=== PATIENT | female | born 1975 | race African-American/Black ===

== ENCOUNTER 2018-01-21 16:18 | Inpatient (IN) | payer OTHER ==
[2018-01-21] MEDS ORDERED: PENDING SANTYL ORDER FOR WOUND CARE XX (17:00)
[2018-01-21] MEDS: OXYCODONE/ACETAMINOPHEN (5/325) TAB PO ×2 (18:35→23:08)
[2018-01-21] MEDS ORDERED: BISACODYL 10 MG SUPP PR (19:00)
[2018-01-21] MEDS ORDERED: ACETAMINOPHEN 325 MG TAB PO (19:00)
[2018-01-21] MEDS ORDERED: MAGNESIUM HYDROXIDE 30ML CUP PO (19:00)
[2018-01-21] MEDS: DOCUSATE SODIUM 100 MG CAP PO (21:00)
[2018-01-21] MEDS: SENNA TAB PO (21:00)
[2018-01-21] MEDS: ASPIRIN (EC) 81 MG TAB PO (21:42)
[2018-01-21] MEDS: morphine (ER) 15 MG TAB PO (21:42)
[2018-01-21] MEDS: CYCLOBENZAPRINE 10 MG TAB PO (21:42)
[2018-01-21] MEDS: ENOXAPARIN 100 MG/ML SYG SC (22:06)
[2018-01-22] MEDS: morphine (ER) 15 MG TAB PO (06:14)
[2018-01-22 06:47] LABS: ADD MAN DIFF? NO
[2018-01-22 06:50] LABS: EOSINOPHILS # 0.1 10^3/ul (0.0-0.5); EOSINOPHILS % 3.9 % (0.0-7.0); HEMATOCRIT 28.7 % (37.0-47.0); HEMOGLOBIN 8.8 g/dl (12.0-16.0); LYMPHOCYTES # 1.2 10^3/ul (0.8-2.9); LYMPHOCYTES % 40.1 % (15.0-51.0); MEAN CORPUSCULAR HEMOGLOBIN 29.1 pg (29.0-33.0); MEAN CORPUSCULAR HGB CONC 30.7 g/dl (32.0-37.0); MEAN PLATELET VOLUME 9.3 fl (7.4-10.4); MONOCYTE # 0.4 10^3/ul (0.3-0.9); MONOCYTES % 12.9 % (0.0-11.0); NEUTROPHIL # 1.3 10^3/ul (1.6-7.5); NEUTROPHILS % 41.8 % (39.0-77.0); NUCLEATED RED BLOOD CELLS% 0.6 /100WBC (0.0-0.0); PLATELET COUNT 293 10^3/UL (140-415); RED BLOOD COUNT 3.02 10^6/ul (4.20-5.40); RED CELL DISTRIBUTION WIDTH 15.9 % (11.5-14.5)
[2018-01-22 06:50] LABS: WHITE BLOOD COUNT 3.1 10^3/ul (4.8-10.8)
[2018-01-22 07:01] LABS: ADD UMIC NO; UR ASCORBIC ACID NEGATIVE (NEGATIVE); UR BILIRUBIN (Dip) NEGATIVE (NEGATIVE); UR BLOOD (Dip) NEGATIVE (NEGATIVE); UR CLARITY CLEAR (CLEAR); UR COLOR YELLOW (YELLOW); UR GLUCOSE (Dip) NEGATIVE (NEGATIVE); UR KETONES (Dip) NEGATIVE (NEGATIVE); UR LEUKOCYTE ESTERASE (Dip) NEGATIVE Leu/ul (NEGATIVE); UR NITRITE (Dip) NEGATIVE (NEGATIVE); UR SPECIFIC GRAVITY (Dip) 1.008 (1.003-1.030); UR TOTAL PROTEIN (Dip) NEGATIVE (NEGATIVE); UR UROBILINOGEN (Dip) NEGATIVE (NEGATIVE)
[2018-01-22 07:33] LABS: ALANINE AMINOTRANSFERASE 32 IU/L (13-69); ALBUMIN 3.2 g/dl (3.3-4.9); ALBUMIN/GLOBULIN RATIO 0.94; ALKALINE PHOSPHATASE 114 IU/L (42-121); ANION GAP 9 (8-16); ASPARTATE AMINO TRANSFERASE 31 IU/L (15-46); BILIRUBIN,INDIRECT 0.7 mg/dl (0-1.1); BILIRUBIN,TOTAL 0.7 mg/dl (0.2-1.3); BLOOD UREA NITROGEN 6 mg/dl (7-20); CALCIUM 8.4 mg/dl (8.4-10.2); CARBON DIOXIDE 29 mmol/L (21-31); CHLORIDE 102 mmol/L (97-110); CREATININE 0.86 mg/dl (0.44-1.00); GLUCOSE 122 mg/dl (70-220); POTASSIUM 4.2 mmol/L (3.5-5.1); SODIUM 136 mmol/L (135-144); TOTAL PROTEIN 6.6 g/dl (6.1-8.1)
[2018-01-22] MEDS: OXYCODONE/ACETAMINOPHEN (5/325) TAB PO (08:13)
[2018-01-22] MEDS: DOCUSATE SODIUM 100 MG CAP PO ×2 (08:14→20:51)
[2018-01-22] MEDS: ASPIRIN (EC) 81 MG TAB PO ×2 (08:14→20:50)
[2018-01-22] MEDS: CYCLOBENZAPRINE 10 MG TAB PO (08:14)
[2018-01-22] MEDS: HYDROmorphONE 1 MG/ML SYG IV ×7 (09:25→21:37)
[2018-01-22] MEDS: NEOMYC/POLYMYX/BACIT 30 GM OINT TOP ×2 (13:34→20:50)
[2018-01-22 14:43] LABS: INR 1.31; PROTIME 16.5 Sec (11.9-14.9); PT RATIO 1.3
[2018-01-22] MEDS: HYDROCODONE/APAP (5/325) TAB PO (15:55)
[2018-01-22] MEDS: BACLOFEN 10 MG TAB PO ×2 (15:55→20:50)
[2018-01-22] MEDS: ENOXAPARIN 100 MG/ML SYG SC ×2 (16:04→21:01)
[2018-01-22] MEDS: WARFARIN 5 MG TAB PO (17:23)
[2018-01-22] MEDS: SENNA TAB PO (20:51)
[2018-01-23] MEDS: HYDROmorphONE 1 MG/ML SYG IV ×6 (06:10→22:03)
[2018-01-23 07:02] LABS: INR 1.43; PROTIME 17.7 Sec (11.9-14.9); PT RATIO 1.4
[2018-01-23] MEDS: DOCUSATE SODIUM 100 MG CAP PO ×2 (09:13→21:19)
[2018-01-23] MEDS: BACLOFEN 10 MG TAB PO ×2 (09:13→21:20)
[2018-01-23] MEDS: HYDROCODONE/APAP (5/325) TAB PO ×2 (09:13→15:35)
[2018-01-23] MEDS: ASPIRIN (EC) 81 MG TAB PO ×2 (09:13→21:19)
[2018-01-23] MEDS: ENOXAPARIN 100 MG/ML SYG SC ×2 (09:17→21:27)
[2018-01-23] MEDS: NEOMYC/POLYMYX/BACIT 30 GM OINT TOP ×3 (09:21→21:20)
[2018-01-23] MEDS: WARFARIN 5 MG TAB PO (18:17)
[2018-01-23] MEDS: SENNA TAB PO (21:19)
[2018-01-24] MEDS: HYDROCODONE/APAP (5/325) TAB PO ×2 (01:00→09:43)
[2018-01-24] MEDS: HYDROmorphONE 1 MG/ML SYG IV ×5 (02:26→22:25)
[2018-01-24 08:35] LABS: ADD MAN DIFF? NO
[2018-01-24 08:41] LABS: BASOPHILS % 0.7 % (0.0-2.0); EOSINOPHILS # 0.1 10^3/ul (0.0-0.5); EOSINOPHILS % 4.7 % (0.0-7.0); HEMATOCRIT 28.2 % (37.0-47.0); HEMOGLOBIN 8.8 g/dl (12.0-16.0); LYMPHOCYTES # 1.2 10^3/ul (0.8-2.9); LYMPHOCYTES % 41.6 % (15.0-51.0); MEAN CORPUSCULAR HGB CONC 31.2 g/dl (32.0-37.0); MEAN CORPUSCULAR VOLUME 93.1 fl (82.0-101.0); MONOCYTE # 0.3 10^3/ul (0.3-0.9); MONOCYTES % 11.1 % (0.0-11.0); NEUTROPHIL # 1.2 10^3/ul (1.6-7.5); NEUTROPHILS % 41.5 % (39.0-77.0); PLATELET COUNT 308 10^3/UL (140-415); RED BLOOD COUNT 3.03 10^6/ul (4.20-5.40); RED CELL DISTRIBUTION WIDTH 15.9 % (11.5-14.5)
[2018-01-24 08:41] LABS: WHITE BLOOD COUNT 2.8 10^3/ul (4.8-10.8)
[2018-01-24 09:02] LABS: INR 1.54; PROTIME 18.8 Sec (11.9-14.9); PT RATIO 1.5
[2018-01-24] MEDS: LACTULOSE 30ML CUP PO ×2 (09:41→12:48)
[2018-01-24] MEDS: NEOMYC/POLYMYX/BACIT 30 GM OINT TOP ×3 (09:41→20:19)
[2018-01-24] MEDS: ENOXAPARIN 100 MG/ML SYG SC ×2 (09:42→20:40)
[2018-01-24] MEDS: ASPIRIN (EC) 81 MG TAB PO ×2 (09:42→20:18)
[2018-01-24] MEDS: BACLOFEN 10 MG TAB PO ×2 (09:43→20:18)
[2018-01-24] MEDS: DOCUSATE SODIUM 100 MG CAP PO ×2 (09:43→21:00)
[2018-01-24] MEDS: WARFARIN 5 MG TAB PO (17:59)
[2018-01-24] MEDS: SENNA TAB PO (21:00)
[2018-01-25] MEDS: HYDROCODONE/APAP (5/325) TAB PO
[2018-01-25] MEDS: HYDROmorphONE 1 MG/ML SYG IV ×5 (02:27→22:52)
[2018-01-25 07:37] LABS: INR 2.03; PROTIME 23.4 Sec (11.9-14.9); PT RATIO 1.8
[2018-01-25] MEDS: DOCUSATE SODIUM 100 MG CAP PO ×2 (10:05→20:24)
[2018-01-25] MEDS: ASPIRIN (EC) 81 MG TAB PO ×2 (10:05→20:24)
[2018-01-25] MEDS: NEOMYC/POLYMYX/BACIT 30 GM OINT TOP ×3 (10:05→20:24)
[2018-01-25] MEDS: ENOXAPARIN 100 MG/ML SYG SC (10:06)
[2018-01-25] MEDS: BACLOFEN 10 MG TAB PO ×2 (10:06→20:24)
[2018-01-25] MEDS: WARFARIN 5 MG TAB PO (18:22)
[2018-01-25] MEDS: SENNA TAB PO (20:24)
[2018-01-26] MEDS: HYDROmorphONE 1 MG/ML SYG IV ×5 (02:48→21:02)
[2018-01-26] MEDS: NEOMYC/POLYMYX/BACIT 30 GM OINT TOP ×3 (09:23→21:10)
[2018-01-26] MEDS: ASPIRIN (EC) 81 MG TAB PO ×2 (09:23→21:00)
[2018-01-26] MEDS: DOCUSATE SODIUM 100 MG CAP PO ×2 (09:23→21:00)
[2018-01-26] MEDS: BACLOFEN 10 MG TAB PO ×2 (09:23→21:00)
[2018-01-26] MEDS: WARFARIN 5 MG TAB PO (17:08)
[2018-01-26] MEDS: SENNA TAB PO (21:02)
[2018-01-27] MEDS: HYDROmorphONE 1 MG/ML SYG IV ×6 (01:01→23:12)
[2018-01-27 07:17] LABS: INR 2.29; PROTIME 25.8 Sec (11.9-14.9)
[2018-01-27] MEDS: BACLOFEN 10 MG TAB PO ×2 (08:30→20:12)
[2018-01-27] MEDS: ASPIRIN (EC) 81 MG TAB PO ×2 (08:30→20:12)
[2018-01-27] MEDS: DOCUSATE SODIUM 100 MG CAP PO ×2 (08:30→20:14)
[2018-01-27] MEDS: NEOMYC/POLYMYX/BACIT 30 GM OINT TOP ×3 (08:31→20:17)
[2018-01-27] MEDS: HYDROCODONE/APAP (5/325) TAB PO (13:13)
[2018-01-27] MEDS: WARFARIN 5 MG TAB PO (18:13)
[2018-01-27] MEDS: SENNA TAB PO (20:16)
[2018-01-28] MEDS: HYDROmorphONE 1 MG/ML SYG IV ×4 (03:37→20:07)
[2018-01-28 08:02] LABS: INR 2.17; PROTIME 24.7 Sec (11.9-14.9); PT RATIO 1.9
[2018-01-28] MEDS: ASPIRIN (EC) 81 MG TAB PO ×2 (09:18→20:10)
[2018-01-28] MEDS: DOCUSATE SODIUM 100 MG CAP PO ×2 (09:18→20:09)
[2018-01-28] MEDS: BACLOFEN 10 MG TAB PO ×2 (09:18→20:09)
[2018-01-28] MEDS: NEOMYC/POLYMYX/BACIT 30 GM OINT TOP ×3 (09:18→20:10)
[2018-01-28] MEDS: HYDROmorphONE 2 MG TAB PO (13:22)
[2018-01-28] MEDS: WARFARIN 5 MG TAB PO (18:16)
[2018-01-28] MEDS: SENNA TAB PO (20:10)
[2018-01-29] MEDS: HYDROmorphONE 1 MG/ML SYG IV ×4 (00:07→22:19)
[2018-01-29] MEDS ORDERED: HYDROmorphONE 4 MG TAB PO (09:00)
[2018-01-29] MEDS: BACLOFEN 10 MG TAB PO ×2 (09:07→20:14)
[2018-01-29] MEDS: DOCUSATE SODIUM 100 MG CAP PO ×2 (09:07→20:13)
[2018-01-29] MEDS: ASPIRIN (EC) 81 MG TAB PO ×2 (09:07→20:14)
[2018-01-29] MEDS: HYDROmorphONE 2 MG TAB PO ×3 (09:08→20:42)
[2018-01-29] MEDS: NEOMYC/POLYMYX/BACIT 30 GM OINT TOP ×3 (09:10→20:16)
[2018-01-29 11:14] LABS: INR 1.91; PROTIME 22.3 Sec (11.9-14.9); PT RATIO 1.7
[2018-01-29] MEDS: WARFARIN 5 MG TAB PO (18:10)
[2018-01-29] MEDS: SENNA TAB PO (20:14)
[2018-01-30] MEDS: HYDROmorphONE 1 MG/ML SYG IV ×2 (02:28→10:14)
[2018-01-30 07:53] LABS: INR 1.92; PROTIME 22.4 Sec (11.9-14.9); PT RATIO 1.8
[2018-01-30] MEDS: NEOMYC/POLYMYX/BACIT 30 GM OINT TOP ×5 (09:00→20:36)
[2018-01-30] MEDS: DOCUSATE SODIUM 100 MG CAP PO ×2 (09:03→20:30)
[2018-01-30] MEDS: ASPIRIN (EC) 81 MG TAB PO ×2 (09:06→20:29)
[2018-01-30] MEDS: BACLOFEN 10 MG TAB PO ×2 (09:06→20:30)
[2018-01-30] MEDS: WARFARIN 5 MG TAB PO (16:45)
[2018-01-30] MEDS: HYDROmorphONE 2 MG TAB PO ×2 (16:46→20:30)
[2018-01-30] MEDS: SENNA TAB PO (20:30)
[2018-01-31] MEDS: HYDROmorphONE 2 MG TAB PO ×3 (02:00→20:03)
[2018-01-31] MEDS: ASPIRIN (EC) 81 MG TAB PO ×2 (08:39→20:03)
[2018-01-31] MEDS: DOCUSATE SODIUM 100 MG CAP PO ×2 (08:39→20:02)
[2018-01-31] MEDS: HYDROmorphONE 1 MG/ML SYG IV (08:39)
[2018-01-31] MEDS: BACLOFEN 10 MG TAB PO ×2 (08:39→20:02)
[2018-01-31] MEDS: NEOMYC/POLYMYX/BACIT 30 GM OINT TOP ×3 (08:52→21:00)
[2018-01-31 12:56] LABS: INR 1.89; PROTIME 22.1 Sec (11.9-14.9); PT RATIO 1.7
[2018-01-31] MEDS: WARFARIN 3 MG TAB PO (18:33)
[2018-01-31] MEDS: SENNA TAB PO (20:02)
[2018-02-01] MEDS: HYDROmorphONE 2 MG TAB PO ×5 (01:54→21:55)
[2018-02-01] MEDS: BACLOFEN 10 MG TAB PO ×2 (09:08→21:55)
[2018-02-01] MEDS: DOCUSATE SODIUM 100 MG CAP PO ×2 (09:08→21:55)
[2018-02-01] MEDS: ASPIRIN (EC) 81 MG TAB PO ×2 (09:08→21:55)
[2018-02-01] MEDS: WARFARIN 3 MG TAB PO (16:28)
[2018-02-01] MEDS ORDERED: WARFARIN 5 MG TAB PO (17:00)
[2018-02-01] MEDS ORDERED: WARFARIN 3 MG TAB PO (17:00)
[2018-02-01] MEDS: SENNA TAB PO (21:55)
[2018-02-02] MEDS: HYDROmorphONE 0.5 MG/0.5 ML SYG IV ×3 (08:10→16:04)
[2018-02-02] MEDS: ASPIRIN (EC) 81 MG TAB PO ×2 (09:00→20:22)
[2018-02-02] MEDS: DOCUSATE SODIUM 100 MG CAP PO ×2 (09:00→20:22)
[2018-02-02] MEDS: BACLOFEN 10 MG TAB PO ×2 (09:00→20:22)
[2018-02-02 09:37] LABS: INR 1.92; PROTIME 22.4 Sec (11.9-14.9); PT RATIO 1.8
[2018-02-02] MEDS: HYDROmorphONE 2 MG TAB PO ×2 (09:54→19:56)
[2018-02-02] MEDS: WARFARIN 3 MG TAB PO (17:11)
[2018-02-02] MEDS: SENNA TAB PO (20:22)
[2018-02-03] MEDS: HYDROmorphONE 0.5 MG/0.5 ML SYG IV ×4 (06:33→20:35)
[2018-02-03 07:32] LABS: INR 2.21; PROTIME 25.1 Sec (11.9-14.9)
[2018-02-03] MEDS: ASPIRIN (EC) 81 MG TAB PO ×2 (08:57→20:33)
[2018-02-03] MEDS: DOCUSATE SODIUM 100 MG CAP PO ×2 (08:57→20:33)
[2018-02-03] MEDS: HYDROmorphONE 2 MG TAB PO ×2 (08:59→18:39)
[2018-02-03] MEDS: BACLOFEN 10 MG TAB PO ×2 (09:00→20:34)
[2018-02-03] MEDS: WARFARIN 3 MG TAB PO (18:20)
[2018-02-03] MEDS: SENNA TAB PO (20:33)
[2018-02-04] MEDS: HYDROmorphONE 0.5 MG/0.5 ML SYG IV ×2 (04:45→09:36)
[2018-02-04 07:40] LABS: INR 2.32; PROTIME 26.1 Sec (11.9-14.9)
[2018-02-04] MEDS: DOCUSATE SODIUM 100 MG CAP PO (09:17)
[2018-02-04] MEDS: ASPIRIN (EC) 81 MG TAB PO (09:17)
[2018-02-04] MEDS: BACLOFEN 10 MG TAB PO (09:18)
== END 2018-02-04 15:24 | disposition home health service (06) | DRG 561 ==
LOC: VRC 01-22 15:22
PROC: F07Z5ZZ Bed Mobility Treatment (ICD-10-PCS; principal; 2018-01-21)
PROC: F08Z2ZZ Grooming/Personal Hygiene Treatment (ICD-10-PCS; 2018-01-21)
PROC: F06Z6ZZ Communicative/Cognitive Integration Skills Treatment (ICD-10-PCS; 2018-01-21)
DX: S72.92XD Unspecified fracture of left femur, subsequent encounter for closed fracture with routine healing (principal); S02.82XD Fracture of other specified skull and facial bones, left side, subsequent encounter for fracture with routine healing; S12.200D Unspecified displaced fracture of third cervical vertebra, subsequent encounter for fracture with routine healing; S12.300D Unspecified displaced fracture of fourth cervical vertebra, subsequent encounter for fracture with routine healing; S12.9XXD Fracture of neck, unspecified, subsequent encounter; S42.009D Fracture of unspecified part of unspecified clavicle, subsequent encounter for fracture with routine healing; S06.9X0D Unspecified intracranial injury without loss of consciousness, subsequent encounter; S09.90XD Unspecified injury of head, subsequent encounter; S10.93XD Contusion of unspecified part of neck, subsequent encounter; V49.9XXD Car occupant (driver) (passenger) injured in unspecified traffic accident, subsequent encounter; R52 Pain, unspecified; Z79.01 Long term (current) use of anticoagulants; Z86.73 Personal history of transient ischemic attack (TIA), and cerebral infarction without residual deficits; I10 Essential (primary) hypertension; F41.9 Anxiety disorder, unspecified
CPT/HCPCS: 74018; 80053; 81003; 85025; 85610; 87081; 87086; 92507; 92523; 93971; 97110; 97112; 97116; 97150; 97163; 97530; 97535; 97542